=== PATIENT | male | born 1995 | race Caucasian/White ===

== ENCOUNTER 2017-08-31 20:09 | Emergency (ER) | payer SELFPAY ==
[~2017-08-31] VITALS: Ht 198.1 cm; Wt 59.1 kg
[2017-08-31 20:14] VITALS: TEMP 99
[2017-08-31 21:03] LABS: BASO # 0.1 (0.0-0.2); BASO % 0.7 % (0.0-2.0); EOS # 0.4 (0.0-0.7); EOS % 3.6 % (0-4.0); GRAN # 5.4 (1.4-6.5); GRAN % 56.4 % (42.2-75.2); HEMATOCRIT 46.3 % (42.0-52.0); HEMOGLOBIN 16.3 g/dl (13.5-18.0); LYMPH # 3.4 (1.2-3.4); LYMPH % 35.3 % (20.0-51.0); MEAN CELL VOLUME 88 fl (80.0-100.0); MEAN CORPUSCULAR HEMOGLOBIN 31 pg (27.0-31.0); MEAN CORPUSCULAR HGB CONC 35 g/dl (33.0-37.0); MEAN PLATELET VOLUME 9.1 fl (7.4-10.4); MONO # 0.4 (0.1-0.6); MONO % 3.8 % (1.7-9.3); PLATELET COUNT 302 K/mm3 (130-400); RED BLOOD COUNT 5.24 M/mm3 (4.20-5.60); REDCELL DISTRIBUTION WIDTH-CV 12.5 % (11.5-14.5)
[2017-08-31 21:13] LABS: ACETAMINOPHEN < 10 ug/mL (10-30); ALANINE AMINOTRANSFERASE 79 U/L (21-72); ALBUMIN 5.4 gm/dL (3.5-5.0); ALKALINE PHOSPHATASE 79 U/L (50-136); ANION GAP 18 mmol/L (7-16); AST,SGOT 53 U/L (15-37); BLOOD UREA NITROGEN 12 mg/dL (9-20); CALCIUM 9.1 mg/dL (8.4-10.2); CARBON DIOXIDE 25 mmol/L (22-30); CHLORIDE 105 mmol/L (98-107); CREATININE, serum 0.83 mg/dL (0.66-1.25); GLUCOSE 106 mg/dL (74-106); SALICYLATE < 1.0 mg/dL; SODIUM 148 mmol/L (137-145); TOTAL PROTEIN 8.4 gm/dL (6.4-8.2)
[2017-08-31 21:57] LABS: ALCOHOL(ethanol),MEDICAL 326 mg/dL
[2017-09-01 00:40] LABS: COLLECTION METHOD CLEAN CATCH
[2017-09-01 00:47] LABS: GRANULAR CAST >12 /lpf; MUCOUS Present /lpf; PH 5 (5-8); URINE APPEARANCE Clear; URINE BACTERIA None Seen /hpf; URINE BILIRUBIN Negative (NEGATIVE); URINE BLOOD 1+ (NEGATIVE); URINE COLOR Yellow; URINE GLUCOSE Negative (NEGATIVE); URINE KETONE Trace (NEGATIVE); URINE LEUKOCYTE ESTERASE Negative (NEGATIVE); URINE NITRATE Negative (NEGATIVE); URINE PROTEIN(semi-quant) 1+ (NEGATIVE); URINE RBC 0-2 /hpf; URINE UROBILINOGEN Negative (NEGATIVE)
[2017-09-01 00:57] LABS: TRICYCLIC ANTIDEPRESS URINE NEGATIVE
[2017-09-01 19:43] VITALS: BP 146/67; PULSE 76
== END 2017-09-01 20:00 | disposition home or self-care (01) ==
LOC: COL.ER 20:09
PROVIDERS: Physician Assistant
DX: F10.129 Alcohol abuse with intoxication, unspecified (principal); R45.851 Suicidal ideations; F32.9 Major depressive disorder, single episode, unspecified; F17.200 Nicotine dependence, unspecified, uncomplicated; Y90.4 Blood alcohol level of 80-99 mg/100 ml
CPT/HCPCS: J1885; J2060; J2405; J7030

== ENCOUNTER 2018-09-14 20:17 | Inpatient (IN) | payer BC ==
[~2018-09-14] VITALS: Ht 198.1 cm; Wt 91.5 kg
[2018-09-14 21:05] LABS: COLLECTION METHOD CLEAN CATCH
[2018-09-14 21:08] LABS: BASO # 0.1 (0.0-0.2); EOS # 0.2 (0.0-0.7); EOS % 3.4 % (0-4.0); GRAN # 2.7 (1.4-6.5); GRAN % 39.4 % (42.2-75.2); HEMATOCRIT 45.2 % (42.0-52.0); HEMOGLOBIN 15.6 g/dl (13.5-18.0); LYMPH # 3.2 (1.2-3.4); LYMPH % 46.8 % (20.0-51.0); MEAN CELL VOLUME 90 fl (80.0-100.0); MEAN CORPUSCULAR HEMOGLOBIN 31 pg (27.0-31.0); MEAN CORPUSCULAR HGB CONC 35 g/dl (33.0-37.0); MEAN PLATELET VOLUME 8.9 fl (7.4-10.4); MONO # 0.6 (0.1-0.6); MONO % 9.3 % (1.7-9.3); PLATELET COUNT 245 K/mm3 (130-400); RED BLOOD COUNT 5.04 M/mm3 (4.20-5.60); REDCELL DISTRIBUTION WIDTH-CV 12.5 % (11.5-14.5)
[2018-09-14 21:14] LABS: MUCOUS Present /lpf; PH 6 (5-8); SQUAMOUS EPITHELIAL None Seen /hpf; URINE APPEARANCE Clear; URINE BACTERIA None Seen /hpf; URINE BILIRUBIN Negative (NEGATIVE); URINE BLOOD 1+ (NEGATIVE); URINE COLOR Straw; URINE GLUCOSE Negative (NEGATIVE); URINE KETONE Negative (NEGATIVE); URINE LEUKOCYTE ESTERASE Negative (NEGATIVE); URINE NITRATE Negative (NEGATIVE); URINE PROTEIN(semi-quant) 1+ (NEGATIVE); URINE RBC 0-2 /hpf; URINE UROBILINOGEN Negative (NEGATIVE)
[2018-09-14 21:18] LABS: ALANINE AMINOTRANSFERASE 28 U/L (21-72); ALBUMIN 4.6 gm/dL (3.5-5.0); ALKALINE PHOSPHATASE 65 U/L (50-136); ANION GAP 15 mmol/L (7-16); AST,SGOT 36 U/L (15-37); BILIRUBIN,TOTAL 1.3 mg/dL (0.0-1.0); BLOOD UREA NITROGEN 16 mg/dL (9-20); CALCIUM 8.7 mg/dL (8.4-10.2); CARBON DIOXIDE 27 mmol/L (22-30); CHLORIDE 103 mmol/L (98-107); CREATININE, serum 0.83 mg/dL (0.66-1.25); GLUCOSE 102 mg/dL (74-106); LIPASE 173 U/L (23-300); POTASSIUM 3.7 mmol/L (3.4-5.0); SODIUM 144 mmol/L (137-145); TOTAL PROTEIN 7.9 gm/dL (6.4-8.2)
[2018-09-14 21:20] LABS: ACETAMINOPHEN < 10 ug/mL (10-30); SALICYLATE < 1.0 mg/dL
[2018-09-14 21:23] LABS: TRICYCLIC ANTIDEPRESS URINE NEGATIVE
[2018-09-14 21:27] LABS: ALCOHOL(ethanol),MEDICAL 427 mg/dL
[2018-09-15] VITALS (12 sets, daily range): BP systolic 107–166; BP diastolic 68–96; PULSE 59–167; TEMP 97.4–98.8
[2018-09-15] MEDS ORDERED: LEXAPRO20 MG PO (12:32)
[2018-09-15] MEDS ORDERED: WELLBUTRIN XL300 M1 PO (12:33)
--- NOTE | 2018-09-15 13:38 | NUR ---
Pt arrived from ED on wheelchair, ambulated to bed without difficulty. Tremors obvious with limited dexterity d/t shaking. Pt AOx4 and appropriate in demenor and mood. Pt ar currenty suicidal ideation - but does admit history of it without a carried out attempt. Pt on phone with mother updating on situation. PRN Ativan orders in place and will be required. Call light within reach, educated to call before attempting ambulation d/t fall risk - pt verbally agrees. Belongings searched with consent from pt: empty plastic bottle of Vodka and pourer off thrown in trash and trash taken to dirty utility room. All other belongings left in room. IV in Right Antecubital kinks with elbow movement - new IV started in Left Forearm. No complaints at this time.
--- NOTE | 2018-09-15 20:29 | NUR ---
PT IN BED SLEEPING/RESTING. HAVE TO SHAKE HIM TO AWAKEN, BUT THEN HE IS A/O X4, PLEASANT AND COOPERATIVE. PT STILL HAS VISIBLE TREMORS, AND STATES THAT HE IS ALWAYS A LITTLE ANXIOUS. PT ADVISES THAT HE HAS HAD SOME DIARRHEA TODAY. PT WAS GIVE GI COCKTAIL. PT HAS NO NEEDS AT THIS TIME, CALL LIGHT WITHIN REACH.
[2018-09-16] VITALS (11 sets, daily range): BP systolic 125–153; BP diastolic 71–92; PULSE 55–84; TEMP 97.1–98.6
--- NOTE | 2018-09-16 02:33 | NUR ---
PT AWAKE AND FEELING A LITTLE ANXIOUS. PT HAS MILD VISIBLE TREMORS AT THIS TIME. PT AMBULATED TO THE BATHROOM AND GAIT WAS STEADY. PT SCORED 6 ON CIWA SCALE. PT GIVEN ATIVAN 1MG IV. CALL LIGHT WITHIN REACH.
--- NOTE | 2018-09-16 07:14 | NUR ---
PT HAD AN UNEVENTFUL NIGHT. PT DID SCORE BETWEEN 3 TO 6 FOR DETOX. PT DID AWAKE UP FOR A COUPLE OF HOURS DURING THE NIGHT AND HE WAS WATCHING TV. PT WAS GIVEN PUDDING AND WATER AT HIS REQUEST. NO OTHER NEEDS, CALL LIGHT WITHIN REACH.
[2018-09-16 08:27] LABS: INR 1.1 (0.8-3.0); PROTHROMBIN TIME 12.5 SECONDS (9.7-12.8)
--- NOTE | 2018-09-16 08:37 | NUR ---
Report recieved from RADHA Hooks. Pt awake now and shaky and very agitated. Pt asked for something to calm him down. Call light in reach. Pt c/o MCNALLY.
[2018-09-16 09:31] LABS: ALBUMIN 3.5 gm/dL (3.5-5.0); BILIRUBIN,TOTAL 2.6 mg/dL (0.0-1.0); CALCIUM 8.4 mg/dL (8.4-10.2); CREATININE, serum 0.61 mg/dL (0.66-1.25); MAGNESIUM 2.2 mg/dL (1.6-2.3); POTASSIUM 3.7 mmol/L (3.4-5.0); TOTAL PROTEIN 6.1 gm/dL (6.4-8.2)
--- NOTE | 2018-09-16 10:16 | NUR ---
Pt ambulated with VARUN Freed in hallway and back to bed. Pt c/o headache and asked for med. Call light in reach.
--- NOTE | 2018-09-16 10:36 | NUR ---
Plan is to return home with support from mother Ayla . Patient reports that he lives alone locally. Pt indicated that he has struggles with substance abuse since he was a child. Pt reports that he has attended inpatient treatment many times and the longest he has remained sober is six month. Patient denies wanting to go to inpatient again. Patient reports that he uses a bike to get around town. Patient has a PCP through [facility]. Patient reports that he uses [facility] for medications. Patient reports that he uses [facility] to stop drinking but when he wants to drink he stops taking the medication. Patient indicated that he would be willing to do an outpatient program. Patient denies the use of any DME. Action: SW gave patient resources for outpatient therapy. SW educated patient resources. SW educated on serverity of substance. No additional needs identified.
--- NOTE | 2018-09-16 11:41 | NUR ---
Visit attempted and pt sleeping soundly in bed. Call light in reach.
--- NOTE | 2018-09-16 15:05 | NUR ---
Pt reported on his home meds and pharmacy notified. Pt's home meds collected in a bag and sent to pharmacy. Pt now ambulating in hallway with BUSINESS SUPPORT ADMINISTRATOR.
--- NOTE | 2018-09-16 17:48 | NUR ---
Pt c/o MCNALLY and agitation and asked for med. Dr. Bass notified. Call light in reach.
--- NOTE | 2018-09-16 19:10 | NUR ---
Report given to VARUN Hooks. Pt resting in bed comfortably. Call light in reach.
--- NOTE | 2018-09-16 20:23 | NUR ---
PT SITTING AT SIDE OF BED. PT IRRITATED BY THE IV MACHINE NOISE. PT DID NOT KNOW WHY IT WAS MAKING A CERTAIN SOUND. ADVISED HIM THAT IT WAS NORMAL AND THERE WAS NOTHING WRONG WITH THE IV PUMP. PT FEELING AGGITATED AND HAVING TROUBLE WITH CONCENTRATION AND SLEEP. PT SCORED 8 ON CIWA FOR DETOX, GAVE 2MG OF ATIVAN. PT TRYING TO REST. NO FURTHER NEEDS CALL LIGHT WITHIN REACH.
[2018-09-17] VITALS (10 sets, daily range): BP systolic 120–154; BP diastolic 75–103; PULSE 60–81; TEMP 97–98.2
--- NOTE | 2018-09-17 05:53 | NUR ---
PT HAS BEEN AWAKE MOST OF THE NIGHT. PT HAS TAKEN OFF ON HIS OWN A COUPLE OF TIMES. PT WAS AGGITATED WITH IV PUMP AND DISCONNECTED HIMSELF AND WENT FOR A WALK. PT WAS BROUGHT BACK TO ROOM AND REMOVED IV IN RIGHT AC, CATHETER INTACT, APPLIED PRESSURE TILL BLEEDING STOPPED, AND THEN APPLIED A PROTECTIVE DRSG. PT ALREADY HAD ANOTHER IV IN HIS LEFT FOREARM PLACED A COUPLE OF DAYS AGO. PT HAD PUT HIS RECLINER OUTSIDE HIS ROOM AND WANTED TO SIT OUTSIDE HIS ROOM. PT A FEW HOURS LATER HAD LEFT AGAIN AND WAS FOUND OUTSIDE OF ER DOORS. PT WAS BROUGHT BACK UP STAIRS TO ROOM. PT ADVISED THAT HE FEELS LIKE HE IS IN A DREAM. HE STATED, "FOR SOME REASON I THOUGHT THE BATHROOM WAS DOWNSTAIRS." PT FINAL FEEL ASLEEP ABOUT 0420 AND HAS BEEN SLEEPING SINCE. PT HAS BEEN SCORING ON HIS CIWA ABOUT 9 TO 10 MOST OF THE NIGHT. PT HAS CALL LIGHT WITHIN REACH.
[2018-09-17 06:51] LABS: HEMATOCRIT 37.3 % (42.0-52.0); MEAN CELL VOLUME 90 fl (80.0-100.0); MEAN CORPUSCULAR HEMOGLOBIN 32 pg (27.0-31.0); MEAN CORPUSCULAR HGB CONC 35 g/dl (33.0-37.0); MEAN PLATELET VOLUME 9.5 fl (7.4-10.4); PLATELET COUNT 146 K/mm3 (130-400); RED BLOOD COUNT 4.15 M/mm3 (4.20-5.60); REDCELL DISTRIBUTION WIDTH-CV 12.1 % (11.5-14.5)
[2018-09-17 07:02] LABS: ALBUMIN 4.1 gm/dL (3.5-5.0); BILIRUBIN,TOTAL 0.9 mg/dL (0.0-1.0); CALCIUM 9.3 mg/dL (8.4-10.2); CREATININE, serum 0.59 mg/dL (0.66-1.25); POTASSIUM 3.5 mmol/L (3.4-5.0)
--- NOTE | 2018-09-17 07:45 | NUR ---
PT SCORED A 10 ON CIWA., WENT TO GO GET ATIVAN 2MG AND WHEN ENTERED THE ROOM THE PT WAS IN BED WITH ARMS ITALIAN TUTOR AND HE WAS SHAKING UNCONTROLLABLY, HAD STAFF ASSIST IN HOLDING ARM WHILE ATIVAN WAS ADMINISTRATED INTO HIS IV. PT STILL HAD EYES CLOSED AND WAS ROCKING WHILE IN BED WITH HOB AT 45 DEGREE ANGLE. PT STARTED TO SHAKE VIGOROUSLY AGAIN IN BED. CALLED DR. PÉREZ AND HE GAVE ORDERS FOR A ONE TIME DOSE OF ATIVAN 2MG IV PUSH. PT CALMED DOWN AND PT ADVISED THAT EARLIER IN THE SHIFT HIS HAND WAS BENT AND HE COULD NOT MOVE THEM AND THAT MADE HIM FRIGHTENED BECAUSE HE DID NOT KNOW WHAT WAS GOING ON WITH HIS BODY. PT FELT THAT HIS HANDS WOULD BE STUCK THAT WAY. PT IS RESTING IN BED AT THIS TIME. CALL LIGHT WITHIN REACH.
[2018-09-17 07:46] LABS: HEMOGLOBIN 13.1 g/dl (13.5-18.0)
--- NOTE | 2018-09-17 08:45 | NUR ---
Patient up in room independently. Explained to patient that he could not be up by self. Assisted back with bed and bed alarm placed
--- NOTE | 2018-09-17 09:00 | NUR ---
Called to patients room by bed alarm. Patient very upset that the bed alarm had to be on. Explained to the patient that it is very important for us to be monitoring him while he is out of bed. Dr. Bass in the room at this time. He also explained to patient the the reasons behind the alarm and patient did not understand the need when he was hyperventalating and shaking. Dr. Bass explained that it did not matter; he had to go by symptoms and with the appearance of seizure it did not change the plan of care.
--- NOTE | 2018-09-17 09:30 | NUR ---
AM medications given to patient at this time. Patient continues to report just how angry he is about the whole situation. Wants to get medication to just put him out for the next 24-48 hours. Explained to the patient that was not possible. His treatment was to get better and to not be sedated. Patient continuet o want to leave
--- NOTE | 2018-09-17 09:30 | NUR ---
Called back to patient room for the same discussion. He again was reminded of the rules. He states he want to discharged now.
--- NOTE | 2018-09-17 10:10 | NUR ---
Patient had been in with social work and c/o that his anger was so significant he just needed to be given something. Dr. Bass called with new orders to given Xanax 1mg at this time. Arrived to patients room to note that he was again shaking with complete neck thrust. Called out patients name. He responded at this time. Wanted to know why when he was hyperventaliting did I yell his name. Explained to patient that I needed to get his attention so I could give him the Xanax at this time.
--- NOTE | 2018-09-17 11:32 | NUR ---
Patient has discovered how to turn the alarm off. He was up in his room independently and shut the door. Again assisted to bed and reset the alarm. Reminded the patient that the bed alarm was for his safety
--- NOTE | 2018-09-17 15:23 | NUR ---
Patient sleeping soundly at this time. No needs
--- NOTE | 2018-09-17 17:34 | NUR ---
Patient has c/o headache this afternoon. New order for Tylenol 650 mg q 6 hours as needed for pain. Patient wanting to sit out in chair in [address]. explained to patient we are unable to do that as he needs the bed/chair alarm. he verbalizes understanding. Gave patient the option to sit up in chair in the room. He decided to go for a walk instead. Noted patient steady on his feet. He has had no further seizure activity this PM. Update given to Dr. Bass this PM new order recieved for LEELA Muñoz this PM.
--- NOTE | 2018-09-17 19:50 | NUR ---
Shift assessment complete. Pt resting in bed, awake, a&o. Pt cooperative c most cares but very aggitated r/t bed alarm. POC reviewed et importance of bed alarm stressed r/t Ativan admin et potential for seizure activity. Pt remains agitated et frequently sets off alarm. Pt denies pain or other discomfort. INT patent. VS WNL. Call light in reach, will monitor closely.
[2018-09-18] VITALS (9 sets, daily range): BP systolic 111–154; BP diastolic 53–97; PULSE 59–86; TEMP 97.3–98.4
--- NOTE | 2018-09-18 07:15 | NUR ---
Pt AAOx4 on the phone with [facility] setting up discharge appointment. Pt wishing to turn off bed alarm d/t it "increasing my anxiety that I can't even get up to urinate without the alarm going off or having to call". Indepenent ambulation assessed, pt steady, with no dizzyness or requiring furniture to balance. If pt cares to ambulate outside room, pt must use call light so staff members can assist.
--- NOTE | 2018-09-18 09:49 | NUR ---
SW met with patient to follow up about alcohol treatment. Patient was given outpatient treatment options by [facility] this weekend. Patient has no other questions of concern at this time.
--- NOTE | 2018-09-18 16:34 | NUR ---
After MD Kali saw pt for psych consult pt was under the impression that he would be going home today. MD Shelia, EMILY Rios and myself were in room when concerns were expressed to pt regarding discharging today. Pt appears upset expressing no violent behavior. Pt ambulated to courtrd window to sit. He expreses mixed emotions on staying in hospital and leaving. He did express a scenario where "I should just leave and drink vodka". This plan was strongly not reccomended. Pt escorted back to room after several minutes on pt's own terms. Pt educated on Librium for q2hr Detox protocol - denied printed instructions.
--- NOTE | 2018-09-18 17:08 | NUR ---
Pt's mother updated on telephone. She was tearfull and worried about her son, but states understanding in keeping pt here one more night for observation. Blanca Jim (cousin) will be coming by this evening to spend time with pt and bring a change of clothes and iPhone wire charger.
--- NOTE | 2018-09-18 19:45 | NUR ---
Shift assessment complete. Pt resting in bed, awake, a&o, cooperative c cares. Pt denies pain, agitation or any other c/o at this time. Pt reports feeling much better this evening than last noc. Pt pleasant et appreciative of cares. INT patent. PT s needs at this time. Call light in reach, will monitor.
[2018-09-19 02:23] VITALS: BP 116/64; PULSE 82
[2018-09-19 06:08] VITALS: BP 111/67; PULSE 59; TEMP 97
--- NOTE | 2018-09-19 07:00 | NUR ---
bedside shift report received from VARUN Vanessa, patient awakened during report and denies needs at this time, is pleasant and cooperative
[2018-09-19 07:29] VITALS: BP 129/71; PULSE 67; TEMP 97.9
--- NOTE | 2018-09-19 07:48 | NUR ---
awake and moving about in room independently, full assessment completed, see interventions for further info, requesting to take a shower, assisted with wrapping INT and providing soap and linens, denies other needs
--- NOTE | 2018-09-19 08:30 | NUR ---
am meds given, only c/o is of a headache and thinks after he has breakfast it will be better
[2018-09-19 09:42] VITALS: BP 141/95; PULSE 113; TEMP 97.2
--- NOTE | 2018-09-19 09:45 | NUR ---
is pacing around the room and stating he is anxious, when questioned it is about going home, detox score completed and medicated with librium 25mg for score of 5, will monitor
[2018-09-19] MEDS ORDERED: EFFEXOR 75M75 MG/TAB PO (09:49)
[2018-09-19] MEDS ORDERED: SEROQUEL 2525 MG/TAB PO (09:50)
[2018-09-19] MEDS ORDERED: FOLIC ACID 11 MG/TA1 PO (09:50)
[2018-09-19] MEDS ORDERED: THIAMINE 1100 MG/TAB PO (09:50)
[2018-09-19] MEDS ORDERED: MULTI VITAMINS1 TAB PO (09:50)
[2018-09-19 11:25] VITALS: BP 139/80; PULSE 86; TEMP 97.8
--- NOTE | 2018-09-19 11:31 | NUR ---
SW met with patient about transporation home. Patient reports he does not have anyone to pick him up and he is unable to pay for a taxi. SW reported she can provide a taxi voucher for him. SW gave taxi voucher to the nurse.
--- NOTE | 2018-09-19 11:45 | NUR ---
continues to display signs of anxiousness and medicated with librium 25mg per detox score
--- NOTE | 2018-09-19 12:25 | NUR ---
pharmacist in to visit and instruct on lexapro
--- NOTE | 2018-09-19 13:13 | NUR ---
notified [facility] and they will be hree around 2:30 pm, informed patient of this and he verbalizes understanding
[2018-09-19 13:37] VITALS: BP 117/80; PULSE 76; TEMP 97.7
--- NOTE | 2018-09-19 13:55 | NUR ---
refused librium for detox score and requesting the other medication for anxiety, medicated with xanax 1mg po, discharge instructions given to patient and will discharge when taxi arrives, verbalizes understanding
--- NOTE | 2018-09-19 14:54 | NUR ---
INT discontinued, discharged ambulatory accompaniened by CATHY
== END 2018-09-19 14:54 | disposition home or self-care (01) | DRG 897 ==
LOC: COL.ER 20:17 → MEDICAL 09-15 11:41
PROVIDERS: Nurse Practitioner; Nurse Practitioner Family; ADMIT Internal Medicine
DX: F10.231 Alcohol dependence with withdrawal delirium (principal); Y90.8 Blood alcohol level of 240 mg/100 ml or more; F17.210 Nicotine dependence, cigarettes, uncomplicated; F10.24 Alcohol dependence with alcohol-induced mood disorder; F41.8 Other specified anxiety disorders
CPT/HCPCS: 99222-AI; 99232-AI; 99233-AI; 99239; J1650; J2060; J2405; J7030

== ENCOUNTER → 2018-09-22 | Outpatient (CLI) | payer BC ==
[~2018-09-22] MED LIST: EFFEXOR 75M75 MG/TAB PO; FOLIC ACID 11 MG/TA1 PO; LEXAPRO20 MG PO; MULTI VITAMINS1 TAB PO; SEROQUEL 2525 MG/TAB PO; THIAMINE 1100 MG/TAB PO; WELLBUTRIN XL300 M1 PO
== END ==
LOC: COL.RAD 09:11
DX: M54.6 Pain in thoracic spine (principal)

== ENCOUNTER → 2018-09-28 | Emergency (ER) | payer BC ==
[2018-09-28 23:40] VITALS: TEMP 98
[2018-09-29 03:35] VITALS: BP 137/84; PULSE 90
== END ==
LOC: COL.ER 23:15
DX: F10.129 Alcohol abuse with intoxication, unspecified (principal); F32.9 Major depressive disorder, single episode, unspecified; F41.9 Anxiety disorder, unspecified

== ENCOUNTER 2018-09-29 09:05 | Emergency (ER) | payer BC ==
[~2018-09-29] VITALS: Ht 198.1 cm; Wt 81.8 kg
[2018-09-29 09:17] VITALS: TEMP 98.2
[2018-09-29 12:25] VITALS: BP 117/68; PULSE 88
[2018-09-29 15:18] LABS: ALBUMIN 4.4 gm/dL (3.5-5.0); BILIRUBIN,TOTAL 0.4 mg/dL (0.0-1.0); CREATININE, serum 0.76 mg/dL (0.66-1.25); TOTAL PROTEIN 7.8 gm/dL (6.4-8.2)
[2018-09-29 15:19] LABS: TRICYCLIC ANTIDEPRESS URINE NEGATIVE
[2018-09-29 16:21] LABS: BASO # 0.1 (0.0-0.2); EOS # 0.4 (0.0-0.7); EOS % 6.4 % (0-4.0); GRAN # 2.1 (1.4-6.5); GRAN % 34.8 % (42.2-75.2); HEMATOCRIT 41.7 % (42.0-52.0); HEMOGLOBIN 14.4 g/dl (13.5-18.0); LYMPH % 48.8 % (20.0-51.0); MEAN CELL VOLUME 93 fl (80.0-100.0); MEAN CORPUSCULAR HEMOGLOBIN 32 pg (27.0-31.0); MEAN CORPUSCULAR HGB CONC 35 g/dl (33.0-37.0); MEAN PLATELET VOLUME 8.7 fl (7.4-10.4); MONO # 0.5 (0.1-0.6); MONO % 7.7 % (1.7-9.3); PLATELET COUNT 321 K/mm3 (130-400); REDCELL DISTRIBUTION WIDTH-CV 12.9 % (11.5-14.5)
== END 2018-09-29 12:25 | disposition home or self-care (01) ==
LOC: COL.ER 09:05
PROVIDERS: Physician Assistant
DX: F10.239 Alcohol dependence with withdrawal, unspecified (principal); Y90.3 Blood alcohol level of 60-79 mg/100 ml
CPT/HCPCS: J2060; J7030